=== PATIENT | male | born 1965 | race Caucasian/White ===

== ENCOUNTER 2019-04-27 21:07 | Inpatient (IN) | payer BC, MEDICARE ==
[~2019-04-27] VITALS: Ht 185.4 cm; Wt 140.6 kg
--- NOTE | 2019-04-27 21:24 | Emergency Room Report ---
History of Present Illness General Chief Complaint: Syncope Source: Patient Present Illness HPI This is a 53-year-old male with a history of chronic A. fib who is not on anticoagulation because of GI bleeding from polyps. He presents with chief complaint of syncope and injury from it. He said he went to the bathroom and had diarrhea. He said it was profuse and he noticed it was kind of dark and blackish in color. He got up and had a syncopal episode and hit his head. He said he passed out. He got better when he is on the ground. He got up again and fell again onto his knee and hurting his left second toe. He was able to get up and walk out to the hallway and had another syncopal episode. He called 911. He said he was diaphoretic. No chest pain. He complained of headache and left second toe pain. Also with chronic bilateral knee pain. Denies any palpitation prior to syncope. No shortness of breath. Patient complained of dental pain in the left lower jaw. He has a cracked tooth and has been painful for last 2 weeks. He was told that he needed a root canal. Allergies: Coded Allergies: No Known Allergies (Unverified , 04/27/19) Patient History Past Medical History: see triage record, old chart reviewed, HTN, AFib Past Surgical History: other Pertinent Family History: none Social History: Denies: smoking Immunizations: other Reviewed Nursing Documentation: PMH: Agreed; PSxH: Agreed Nursing Documentation-[facility] Past Medical History: No History, Except For Hx Hypertension: Yes Hx Cancer: No Hx Gastrointestinal Problems: Yes - esophageal varices Hx Seizures: Yes Review of Systems Eye: Denies: eye pain, blurred vision ENT: Denies: ear pain, nose congestion, throat swelling Respiratory: Denies: cough, shortness of breath Cardiovascular: Denies: chest pain, palpitations Gastrointestinal: Denies: abdominal pain, diarrhea, nausea, vomiting Musculoskeletal: Reports: joint pain; Denies: back pain Skin: Denies: rash Neurological: Reports: headache, syncope; Denies: numbness Endocrine: Denies: increased thirst, increased urine Hematologic/Lymphatic: Denies: easy bruising All Other Systems: negative except mentioned in HPI Physical Exam Vital Signs Date Time Temp Pulse Resp B/P (MAP) Pulse Ox O2 Delivery O2 Flow Rate FiO2 11/14/19 21:00 98.2 86 20 92/72 (79) 99 Room Air Vitals with hypotension Sp02 EP Interpretation: reviewed, normal General Appearance: well appearing, no apparent distress, alert, obese Head: normocephalic, atraumatic Eyes: bilateral eye PERRL, bilateral eye EOMI ENT: hearing grossly normal, normal pharynx Neck: full range of motion, supple, no meningismus Respiratory: chest non-tender, lungs clear, normal breath sounds Cardiovascular #1: no murmur, irregularly irregular Gastrointestinal: normal bowel sounds, non tender, no mass, no organomegaly, no bruit, non-distended Rectal: other - Yellow loose stool. Heme-negative Musculoskeletal: back normal, normal range of motion, other - Tenderness to the left second toe with probable dislocation of the middle phalanx Psychiatric: mood/affect normal Procedures Joint Reduction Joint Reduction : Consent: Verbal Joint Reduction Site: other - left 2nd toe Procedural Sedation: No Reduction Attempts: One Pre-Procedure NV Exam: Yes Post-Procedure NV Exam: Yes Post Joint Reduction Film: joint reduced Patient Tolerated: Well Complications: None Progress With gentle traction, I reduce the PIP joint of the second toe. Patient tolerated procedure without any problem. Additional Procedure Procedure Narrative Procedure: Dental block Indication: Dental pain Description: I injected the inferior alveolar nerve of the left lower jaw with 1 % lidocaine without epinephrine. I injected 2 cc. Patient felt better. No complication. Medical Decision Making Diagnostic Impression: Primary Impression: Syncope Qualified Codes: R55 - Syncope and collapse Additional Impressions: Head injury, acute Qualified Codes: S09.90XA - Unspecified injury of head, initial encounter Atrial fibrillation Qualified Codes: I48.11 - Longstanding persistent atrial fibrillation Dislocation of toe of left foot Qualified Codes: S93.105A - Unspecified dislocation of left toe(s), initial encounter Dental infection ER Course Patient presents with syncope. Most likely orthostatic secondary to diarrhea. No acute bleed. No ACS or PE. Patient felt better now. Pressure improved after IV fluids. Will admit for further work-up. I discussed the case with Dr. Price will admit. EKG Diagnostic Results Rate: normal Rhythm: other - afib ST Segments: other - NSST changes Rhythm Strip Diag. Results EP Interpretation: yes Rate: 81 Rhythm: no PVC's, no ectopy, other - afib Chest X-Ray Diagnostic Results Chest X-Ray Diagnostic Results : Chest X-Ray Ordered: Yes # of Views/Limited/Complete: 1 View Indication: Other - syncope EP Interpretation: Yes Interpretation: no consolidation, no effusion, no pneumothorax, other - CM with vasc congestion Impression: Other - CM Electronically Signed by: Gerardo Jerez MD Other X-Ray Diagnostic Results Other X-Ray Diagnostic Results : X-Ray ordered: Left foot xrays # of Views/Limited Vs Complete: 3 View Indication: Pain EP Interpretation: Yes Interpretation: no soft tissue swelling, no fractures, other - left 2nd toe with dislocation of PIP joint Impression: Other - left 2nd toe PIP joint. Electronically Signed by: Gerardo Jerez MD CT/MRI/US Diagnostic Results CT/MRI/US Diagnostic Results : Imaging Test Ordered: CT head Impression Read by radiologist. Negative. Last Vital Signs Date Time Temp Pulse Resp B/P (MAP) Pulse Ox O2 Delivery O2 Flow Rate FiO2 04/27/19 21:00 98.2 86 20 92/72 (79) 99 Room Air Status: improved Disposition: ADMITTED INPATIENT Condition: Serious Gerardo Jerez MD Apr 27, 2019 21:24
[2019-04-27 21:32] LABS: HEMATOCRIT 45.5 % (42.0-52.0); HEMOGLOBIN 14.8 G/DL (14.2-18.0); MEAN CORPUSCULAR VOLUME 80 FL (80-99); PLATELET COUNT 98 K/UL (150-450); RED CELL DISTRIBUTION WIDTH 14.8 % (11.6-14.8); WHITE BLOOD COUNT 4.8 K/UL (4.8-10.8)
[2019-04-27 21:35] VITALS: BP 110/72
[2019-04-27 21:44] LABS: INR 1.1 (0.9-1.1)
[2019-04-27] MEDS ORDERED: Bacitracin Oint UD TOPIC ONE (21:45)
--- NOTE | 2019-04-27 21:45 | NUR ---
ED Nurse Note: pt presents to ED via EMS arrival from home. per pt he had 3 syncopal episodes today that were unwtinessed. pt reports hitting his head for one of the episodes and LOC for one episode. pt also states that he had an episode of blood in his stool today. Pt c/o L second toe pain that is 10/10 and a toothache. pt denies feeling sweaty or lighteaded before he fell but does state that he was disoriented afterward. pt stopped taking blood thinners for his A.fib 2 months ago and has a h/o DM. lowest BP en route was 88/52, pt came with a 20 ti IV in his L foot and 1L NS running with 300 mL finished
[2019-04-27 21:54] LABS: ANION GAP 3 mmol/L (5-15); BLOOD UREA NITROGEN 14 mg/dL (7-18); CALCIUM 8.3 MG/DL (8.5-10.1); CARBON DIOXIDE 34 MMOL/L (21-32); CHLORIDE 103 MMOL/L (98-107); CREATININE 1.4 MG/DL (0.55-1.30); POTASSIUM 3.7 MMOL/L (3.5-5.1); SODIUM 140 MMOL/L (136-145)
[2019-04-27 22:00] VITALS: BP 126/74
[2019-04-27] MEDS ORDERED: Morphine Sulfate 4mg/ml Inj (IV USE ONLY) IVP ONE ×2 (22:00→23:15)
--- NOTE | 2019-04-27 22:04 | Diagnostic Imaging Report ---
Indication: Headache. Head trauma Technique: Contiguous 5 mm thick transaxial imaging of the head obtained in a Siemens Sensation [address] scanner. Soft tissue and bone windows generated. Automatic Exposure Control was utilized. Total Dose length Product (DLP): 1394.[address] Dose Index Volume (CTDIvol): 62.7 mGy Comparison: none Findings: The size and configuration of the cortical sulci, basal cisterns, and ventricles are within normal limits for age. There is no mass effect, midline shift, or edema identified. There is no evidence of acute hemorrhage or abnormal intra-axial or extra-axial fluid collections. The bones and soft tissues are unremarkable. Impression: No mass effect, edema or acute bleed. [facility] has communicated the preliminary results to the Emergency Department. Their findings are largely concordant with this report. The CT scanner at [facility] is accredited by the [employer] and the scans are performed using dose optimization techniques as appropriate to a performed exam including Automatic Exposure control.
[2019-04-27 22:06] LABS: ALANINE AMINOTRANSFERASE 58 U/L (12-78); ALBUMIN 3.3 G/DL (3.4-5.0); ALBUMIN/GLOBULIN RATIO 0.7 (1.0-2.7); ALKALINE PHOSPHATASE 133 U/L (46-116); ASPARTATE AMINO TRANSFERASE 75 U/L (15-37)
[2019-04-27 23:10] VITALS: BP 143/85
[2019-04-27] MEDS ORDERED: Morphine Sulfate 4mg/ml Inj (IV USE ONLY) IVP PRN (23:15)
--- NOTE | 2019-04-27 23:18 | NUR ---
TRANSFER TO FLOOR: Patient transferred to as ordered, per JYOTI Jerez. Report given to . Belongings sent with pt. Family and or S/O informed of transfer. Addendum: 04/28/19 at 0305 by LAKEE Report given to SHAWANDA Mcfadden
[2019-04-27 23:30] VITALS: BP 150/94
--- NOTE | 2019-04-27 23:30 | NUR ---
NURSE NOTES: Patient transferred safely to Tele, report given by Diana.Patient transferred via gurney, in stable condition, AOx4, complains of tooth pain 5/10 and bilateral knees 4/10, feels weak, IV site on right AC g 22, asymptomatic, patent, intact. Small laceration on nose, minimal bleeding noted, left 2nd toe dislocation, Belongings checked and signed, called Dr. Price for admission orders. Bed low&locked, side rails upx3, call light within reach, will continue to monitor and reassess.
[2019-04-28] VITALS: BP 140/89
--- NOTE | 2019-04-28 | NUR ---
NURSE NOTES: Admission orders received, noted and carried out
[2019-04-28] MEDS ORDERED: traMADol 50mg tab ORAL PRN ×2 (03:45→11:18)
[2019-04-28 04:00] VITALS: BP 115/61
[2019-04-28 06:42] LABS: HEMATOCRIT 41.5 % (42.0-52.0); HEMOGLOBIN 13.1 G/DL (14.2-18.0); MEAN CORPUSCULAR VOLUME 82 FL (80-99); PLATELET COUNT 91 K/UL (150-450); RED BLOOD COUNT 5.06 M/UL (4.70-6.10); RED CELL DISTRIBUTION WIDTH 16.8 % (11.6-14.8); WHITE BLOOD COUNT 4.8 K/UL (4.8-10.8)
[2019-04-28 07:28] LABS: ALANINE AMINOTRANSFERASE 48 U/L (12-78); ALBUMIN 2.9 G/DL (3.4-5.0); ALBUMIN/GLOBULIN RATIO 0.6 (1.0-2.7); ALKALINE PHOSPHATASE 120 U/L (46-116); ANION GAP 5 mmol/L (5-15); ASPARTATE AMINO TRANSFERASE 62 U/L (15-37); BLOOD UREA NITROGEN 18 mg/dL (7-18); CARBON DIOXIDE 29 MMOL/L (21-32); CHLORIDE 102 MMOL/L (98-107); CREATININE 1.4 MG/DL (0.55-1.30); PHOSPHORUS 3.3 MG/DL (2.5-4.9); POTASSIUM 3.5 MMOL/L (3.5-5.1); SODIUM 135 MMOL/L (136-145)
--- NOTE | 2019-04-28 07:28 | NUR ---
HAND-OFF: Report given to SHAWANDA Blum, patient in stable condition, plan of care endorsed..
[2019-04-28 07:45] LABS: BILIRUBIN,TOTAL 0.6 MG/DL (0.2-1.0)
[2019-04-28 07:49] VITALS: BP 113/70
[2019-04-28] MEDS: Spironolactone 25mg tab ORAL SCH ×2 (08:15→17:02)
[2019-04-28] MEDS: Sertraline 100mg tab ORAL SCH (08:47)
--- NOTE | 2019-04-28 08:49 | NUR ---
NURSE NOTES: pt awake alert, no distress. denies sob. call light within reach. denies pain. will monitor. tramadol effective in relieving generalized pain (pt c/o toothache and generalized body pain).
--- NOTE | 2019-04-28 10:59 | Diagnostic Imaging Report ---
Indication: Foot pain Comparison: None Findings: 3 views of the left foot were obtained. There is apparent dislocation of the second PIP joint. No fracture is identified. Soft tissues are unremarkable. IMPRESSION: Dislocated PIP joint second toe
--- NOTE | 2019-04-28 11:00 | Diagnostic Imaging Report ---
Indication: Dyspnea Comparison: None A single view chest radiograph was obtained. Findings: Both interstitial and alveolar densities demonstrated throughout the lungs. The alveolar or airspace opacities are prominent within the upper lung salcedo while the interstitial densities are noted diffusely. This is seen in the setting of prominent pulmonary vascularity and heart size. The bones are unremarkable. IMPRESSION: Suspect CHF. Correlate clinically
--- NOTE | 2019-04-28 11:21 | Consultation ---
History of Present Illness General Date patient seen: Apr 28, 2019 Chief Complaint: Syncope Present Illness HPI 53-year-old male with a history of chronic A fib, SHARDA, PUCKETT, not on anticoagulation presented to ER with chief complaint of syncope in the bathroom. He said his BM was profuse and he noticed it was kind of dark and blackish in color. He got up and had a syncopal episode and hit his head. He was able to get up and walk out to the hallway and had another syncopal episode. He called 911. He complained of headache and left second toe pain. His Systolic BP was around 70's in the field. He takes Amlodipine for BP. He is admitted to telemetry for further evaluation. Allergies: Coded Allergies: No Known Allergies (Unverified , 04/27/19) Patient History Healthcare decision maker Resuscitation status Full Code Advanced Directive on File Past Medical/Surgical History Past Medical/Surgical History: (1) History of hypertension (2) PUCKETT (nonalcoholic steatohepatitis) (3) Morbid obesity with BMI of 40.0-44.9, adult (4) SHARDA (obstructive sleep apnea) (5) Atrial fibrillation Review of Systems All Other Systems: negative except mentioned in HPI Physical Exam General Appearance: WD/WN, no apparent distress Lines, tubes and drains: peripheral HEENT: normocephalic, atraumatic Neck: non-tender, normal alignment Respiratory/Chest: chest wall non-tender, lungs clear, normal breath sounds Cardiovascular/Chest: normal peripheral pulses, normal rate, regular rhythm Abdomen: normal bowel sounds Genitourinary/Rectal: normal genital exam Skin Exam: normal pigmentation Neurologic: nursing unit coordinator II-XII grossly normal Last 24 Hour Vital Signs Date Time Temp Pulse Resp B/P (MAP) Pulse Ox O2 Delivery O2 Flow Rate FiO2 04/28/19 09:00 Room Air 04/28/19 08:46 97.1 04/28/19 08:18 90 113/70 04/28/19 08:06 106 04/28/19 08:00 30 04/28/19 07:49 97.1 90 16 113/70 (84) 99 04/28/19 04:08 30 04/28/19 04:00 93 04/28/19 04:00 96.8 99 16 115/61 (79) 99 04/28/19 03:00 89 16 94 Facial 30 04/28/19 01:31 30 04/28/19 01:30 90 17 93 Facial 30 04/28/19 00:00 97.5 102 18 140/89 (106) 96 04/28/19 00:00 98 04/28/19 00:00 100 96 106 04/27/19 23:38 103 04/27/19 23:38 Bi-pap 04/27/19 23:34 97 19 143/85 97 Room Air 04/27/19 23:30 97.5 106 21 150/94 (112) 96 04/27/19 23:22 98.2 04/27/19 23:10 97 20 143/85 96 Room Air 04/27/19 22:40 98.2 04/27/19 22:00 89 20 126/74 97 Room Air 04/27/19 21:35 98.2 20 110/72 99 Room Air 04/27/19 21:00 98.2 86 20 92/72 (79) 99 Room Air Intake and Output 04/27/19 04/28/19 19:00 07:00 Intake Total 50 ml Balance 50 ml Intake Oral 50 ml Laboratory Tests Test 04/27/19 21:20 04/28/19 05:53 White Blood Count 4.8 K/UL (4.8-10.8) 4.8 K/UL (4.8-10.8) Red Blood Count 5.70 M/UL (4.70-6.10) 5.06 M/UL (4.70-6.10) Hemoglobin 14.8 G/DL (14.2-18.0) 13.1 G/DL (14.2-18.0) L Hematocrit 45.5 % (42.0-52.0) 41.5 % (42.0-52.0) L Mean Corpuscular Volume 80 FL (80-99) 82 FL (80-99) Mean Corpuscular Hemoglobin 25.9 PG (27.0-31.0) L 25.9 PG (27.0-31.0) L Mean Corpuscular Hemoglobin Concent 32.4 G/DL (32.0-36.0) 31.6 G/DL (32.0-36.0) L Red Cell Distribution Width 14.8 % (11.6-14.8) 16.8 % (11.6-14.8) H Platelet Count 98 K/UL (150-450) L 91 K/UL (150-450) L Mean Platelet Volume 6.0 FL (6.5-10.1) L 6.4 FL (6.5-10.1) L Neutrophils (%) (Auto) % (45.0-75.0) % (45.0-75.0) Lymphocytes (%) (Auto) % (20.0-45.0) % (20.0-45.0) Monocytes (%) (Auto) % (1.0-10.0) % (1.0-10.0) Eosinophils (%) (Auto) % (0.0-3.0) % (0.0-3.0) Basophils (%) (Auto) % (0.0-2.0) % (0.0-2.0) Differential Total Cells Counted 100 100 Neutrophils % (Manual) 75 % (45-75) 77 % (45-75) H Lymphocytes % (Manual) 16 % (20-45) L 17 % (20-45) L Monocytes % (Manual) 7 % (1-10) 5 % (1-10) Eosinophils % (Manual) 2 % (0-3) 1 % (0-3) Basophils % (Manual) 0 % (0-2) 0 % (0-2) Band Neutrophils 0 % (0-8) 0 % (0-8) Platelet Estimate Decreased L Decreased L Platelet Morphology Normal Normal Red Blood Cell Morphology Normal Prothrombin Time 11.2 SEC (9.30-11.50) Prothromb Time International Ratio 1.1 (0.9-1.1) Activated Partial Thromboplast Time 25 SEC (23-33) Sodium Level 140 MMOL/L (136-145) 135 MMOL/L (136-145) L Potassium Level 3.7 MMOL/L (3.5-5.1) 3.5 MMOL/L (3.5-5.1) Chloride Level 103 MMOL/L (98-107) 102 MMOL/L (98-107) Carbon Dioxide Level 34 MMOL/L (21-32) H 29 MMOL/L (21-32) Anion Gap 3 mmol/L (5-15) L 5 mmol/L (5-15) Blood Urea Nitrogen 14 mg/dL (7-18) 18 mg/dL (7-18) Creatinine 1.4 MG/DL (0.55-1.30) H 1.4 MG/DL (0.55-1.30) H Estimat Glomerular Filtration Rate 53.2 mL/min (>60) 53.2 mL/min (>60) Glucose Level 99 MG/DL (74-106) 167 MG/DL (74-106) H Calcium Level 8.3 MG/DL (8.5-10.1) L 8.0 MG/DL (8.5-10.1) L Total Bilirubin 1.0 MG/DL (0.2-1.0) 0.6 MG/DL (0.2-1.0) Aspartate Amino Transf (AST/SGOT) 75 U/L (15-37) H 62 U/L (15-37) H Alanine Aminotransferase (ALT/SGPT) 58 U/L (12-78) 48 U/L (12-78) Alkaline Phosphatase 133 U/L (46-116) H 120 U/L (46-116) H Troponin I 0.000 ng/mL (0.000-0.056) 0.002 ng/mL (0.000-0.056) Pro-B-Type Natriuretic Peptide 92 pg/mL (0-125) Total Protein 7.9 G/DL (6.4-8.2) 7.6 G/DL (6.4-8.2) Albumin 3.3 G/DL (3.4-5.0) L 2.9 G/DL (3.4-5.0) L Globulin 4.6 g/dL 4.7 g/dL Albumin/Globulin Ratio 0.7 (1.0-2.7) L 0.6 (1.0-2.7) L Anisocytosis 1+ Phosphorus Level 3.3 MG/DL (2.5-4.9) Magnesium Level 1.8 MG/DL (1.8-2.4) Height (Feet): 6 Height (Inches): 1.00 Weight (Pounds): 310 Medications Current Medications Medications (Trade) Dose Ordered Sig/Yan Route PRN Reason Start Time Stop Time Status Last Admin Dose Admin Amlodipine Besylate (Norvasc) 10 mg DAILY ORAL 04/28/19 09:00 05/28/19 08:59 Amoxicillin (Amoxil) 500 mg EVERY 8 HOURS ORAL 04/28/19 06:00 05/05/19 05:59 04/28/19 05:42 Gabapentin (Neurontin) 300 mg THREE TIMES A DAY ORAL 04/28/19 09:00 05/28/19 08:59 04/28/19 08:15 Lamotrigine (LaMICtal) 100 mg BID ORAL 04/28/19 09:00 05/28/19 08:59 04/28/19 08:15 Pantoprazole (Protonix) 40 mg DAILY ORAL 04/28/19 09:00 05/28/19 08:59 04/28/19 08:15 Sertraline HCl (Zoloft) 100 mg DAILY ORAL 04/28/19 09:00 05/28/19 08:59 04/28/19 08:47 Spironolactone (Aldactone) 25 mg BID ORAL 04/28/19 09:00 05/28/19 08:59 04/28/19 08:15 Tramadol HCl (Ultram) 50 mg Q6H PRN ORAL pain 04/28/19 03:45 05/05/19 03:44 04/28/19 08:16 Trazodone HCl (Desyrel) 50 mg BEDTIME ORAL 04/28/19 21:00 05/28/19 20:59 Assessment/Plan Problem List: (1) Hypotensive syncope ICD Codes: R55 - Syncope and collapse SNOMED: 56669812 (2) Acute encephalopathy ICD Codes: G93.40 - Encephalopathy, unspecified SNOMED: 68752897, 178512219 (3) Atrial fibrillation ICD Codes: I48.91 - Unspecified atrial fibrillation SNOMED: 35271045, 7138123 Qualifiers: Qualified Codes: I48.11 - Longstanding persistent atrial fibrillation (4) SHARDA (obstructive sleep apnea) ICD Codes: G47.33 - Obstructive sleep apnea (adult) (pediatric) SNOMED: 67383016 (5) Morbid obesity with BMI of 40.0-44.9, adult ICD Codes: E66.01 - Morbid (severe) obesity due to excess calories; Z68.41 - Body mass index (BMI) 40.0-44.9, adult SNOMED: 267885388, 744736520, 73506361377685 (6) PUCKETT (nonalcoholic steatohepatitis) ICD Codes: K75.81 - Nonalcoholic steatohepatitis (PUCKETT) SNOMED: 981248569 (7) History of hypertension ICD Codes: Z86.79 - Personal history of other diseases of the circulatory system SNOMED: 947063082 Assessment/Plan: echo reviewed cardio evaluation adjust cardiac meds check stool symptomatic treatment MRI of knee when pt more stable. Quentin Beckford MD Apr 28, 2019 11:21
[2019-04-28 12:00] VITALS: BP 120/70
[2019-04-28] MEDS: HYDROcodone/Acetamin 5/325 tab ORAL PRN ×2 (14:04→20:51)
[2019-04-28 15:17] VITALS: BP 118/70
--- NOTE | 2019-04-28 15:41 | Cardiology Report ---
APPROVED REPORT EXAM: Two-dimensional and M-mode echocardiogram with Doppler and color Doppler. INDICATION Syncope M-Mode DIMENSIONS IVSd1.2 (0.7-1.1cm)Left Atrium (MM)4.4 (1.6-4.0cm) LVDd4.5 (3.5-5.6cm)Aortic Root3.6 (2.0-3.7cm) PWd1.2 (0.7-1.1cm)Aortic Cusp Exc.2.6 (1.5-2.0cm) LVDs1.9 (2.5-4.0cm) PWs2.1 cm Technically difficult study due to patient body habitus. Study quality precludes accurate assessment of regional wall motion. Normal left ventricular chamber size, systolic function and wall motion to extent visualized. Left ventricular ejection fraction estimated to be 60 %. Mild left ventricular hypertrophy. No evidence of pericardial effusion. Mild left atrial enlargement. Right cardiac chamber sizes are within normal limits. Focal aortic valve sclerosis with adequate cusp excursion. Thickened mitral valve leaflets with normal excursion. Mild mitral annulus and aortic root calcification. Pulmonic valve not well visualized. Normal tricuspid valve structure. IVC is normal in size with physiological collapse. A color flow and spectral Doppler study was performed and revealed: No aortic regurgitation. No mitral regurgitation. Left ventricular diastolic function could not be determined due to A-Fib. No tricuspid regurgitation. No pulmonic regurgitation present.
--- NOTE | 2019-04-28 15:45 | History & Physical ---
History and Physical History & Physicial Joselo Price MD Apr 28, 2019 15:45
--- NOTE | 2019-04-28 16:57 | NUR ---
CASE MANAGEMENT: 53YR OLD MALE BIBA FROM HOME CC; BP 88/51 @ [facility] SI: SYNCOPE. AFIB. DENTAL INFECTION 98.2 86 20 92/72 99% ON RA CR+1.4 IS: 1L NS BOLUS 500CC NS BOLUS IV MORPHINE IV ZOFRAN CT HEAD CXR : TO TELEMETRY INTERQUAL CRITERIA MET
--- NOTE | 2019-04-28 17:56 | Diagnostic Imaging Report ---
EXAM: XR Left Knee, 3 Views CLINICAL HISTORY: PAIN TECHNIQUE: Three views of the left knee. COMPARISON: None FINDINGS: Bones joints: No displaced fracture or dislocation identified. Osteopenia. Mild degenerative changes of the left knee. No joint effusion. Soft tissues: Normal. IMPRESSION: No displaced fracture or dislocation identified.
--- NOTE | 2019-04-28 17:58 | Diagnostic Imaging Report ---
EXAM: XR Right Knee, 3 Views CLINICAL HISTORY: PAIN TECHNIQUE: Three views of the right knee. COMPARISON: None FINDINGS: Bones joints: No displaced fracture or dislocation identified. Osteopenia. Mild degenerative changes of the right knee. Quadriceps tendon enthesophyte off the superior patella. No joint effusion. Soft tissues: Mild soft tissue prominence. IMPRESSION: No displaced fracture or dislocation identified.
--- NOTE | 2019-04-28 19:08 | NUR ---
HAND-OFF: Report given to ELBA MYABERRY.
--- NOTE | 2019-04-28 19:43 | NUR ---
NURSE NOTES: Received report from SHAWANDA Blum, patient in stable condition, AOx4, complains of pain 4/10 bilateral knees, , IV right AC g22 asymptomatic, patent, intact, bed low and locked, call light within reach, side rails upx3 will continue to monitor and reassess.
[2019-04-28 20:00] VITALS: BP 116/53
--- NOTE | 2019-04-28 20:00 | History and Physical Report ---
DATE OF ADMISSION: 04/27/2019 CHIEF COMPLAINT: Syncopal episode. HISTORY OF PRESENT ILLNESS: This is a 53-year-old gentleman with past medical history significant for chronic atrial fibrillation, history of PUCKETT, hypertension, history of colonic polyp with prior history of GI bleed with severe anemia, required 2 units of packed RBC. The patient presented to the emergency room after had a syncopal episode. The patient stated that he went to the bathroom, had a bowel movement profuse, and noticed a dark blackish color. He got up, had a syncopal episode, and hit his back of his head. He passed out 3 times. He got better. When he was on the ground, he got up again, he fell again after his knees were buckled and then sustained injury to the left second toe. The patient was able to get up and walk around the hallway and had another syncope. Subsequently, he called EMS and then the patient was brought into the emergency room. The patient thought that he passed out for a short period of time. Denies any chest pain or palpitation prior to that. Denies any double vision or bowel or urine incontinence. Shortly after initial evaluation in the emergency, the patient was admitted to the hospital with hypotension as well as syncope with collapse. PAST MEDICAL HISTORY/PAST SURGICAL HISTORY: As above history of atrial fibrillation, obstructive sleep apnea on Auto PAP, history of PUCKETT, and morbid obesity. History of GI bleed due to the duodenum polyps. Has 3 polyps that bled and required blood transfusion in the past [address] [facility]. MEDICATIONS AT HOME: Please refer to medication reconciliation. ALLERGIES: No known drug allergies. SOCIAL HISTORY: The patient at this time is disabled. Denies any substance abuse. Denies any alcohol abuse. He used to work in . FAMILY HISTORY: Noncontributory. REVIEW OF SYSTEMS: Mostly as above. Denies any dysuria, frequency, or hematuria. Denies any bright red blood per rectum. Denies any double vision. Complained about loss of consciousness. Positive head trauma. Denies any bowel or urine incontinence. PHYSICAL EXAMINATION: VITAL SIGNS: On admission from the ER, temperature 98.2, pulse of 86, respiratory rate 20, blood pressure 92/72, repeat one is 126/74. GENERAL: The patient is awake, responsive, no acute distress. HEAD AND NECK: Pupils are reactive to light. Extraocular movements intact. Neck was supple. No JVD. LUNGS: Clear. No wheezes or rales. Decreased air entry in the bases. HEART: S1, S2. Distant heart sounds. Irregular. No murmur or gallop was appreciated. ABDOMEN: Soft, nondistended, nontender. Morbidly obese. No rebound tenderness. No fluid shift. EXTREMITIES: No cyanosis, clubbing. Trace ankle edema NEUROLOGIC: Cranial nerves II through XII grossly intact. Motor is 5/5. Gait was not assessed due to the patient's status. RECTAL: Refused and deferred. GENITOURINARY: Refused and deferred. PSYCHIATRIC: Mood and affect is intact. LABORATORY DATA: On admission from the ER, WBC of 4.8, hemoglobin 14, hematocrit 45, platelet is 98. Sodium 140, potassium 3.7, chloride 103, bicarb 34, BUN 14, creatinine 1.4, glucose 99, calcium is 8.3. AST of 75, ALT of 58, alkaline phosphatase 133. First and second troponin negative at 0.00 and 0.002. BNP of 92. Albumin is 3.3. Total protein 7.9. PT is 11, INR 1.1, PTT of 25. The patient had a CT of the brain showed no mass effect, edema, or acute bleed. X-ray of the foot shows a dislocated PIP joint second toe on the left foot. Chest x-ray is suspected congestive heart failure. Correlate clinically. ASSESSMENT: 1. Syncope and collapse, most likely secondary to hypotension, possible dehydration. 2. Chronic atrial fibrillation. 3. Obstructive sleep apnea, on CPAP. 4. Morbid obesity. 5. History of PUCKETT. 6. History of hypertension. 7. Thrombocytopenia. 8. Chronic kidney disease, stage II. 9. Left foot second toe dislocation, status post of rearrangement and replacement fixed displacement. 10. Dental infection with dental cavities. PLAN: 1. Admit the patient to monitored unit. We will follow up with Dr. Beckford from Pulmonary Critical Care and Dr. Aldana from Cardiology. 2. Resume home medication. 3. Monitor blood pressure closely. 4. Monitor laboratory in the morning. 5. Code status, Full Code. 6. DVT prophylaxis, heparin subcutaneous. 7. We will follow up with 2D echo. Joselo Price M.D. DR: NARGIS JOB#: [id number] CC:
[2019-04-28] MEDS: TraZODone 50mg tab ORAL SCH (20:52)
--- NOTE | 2019-04-28 23:00 | NUR ---
RESPIRATORY NOTE: Noted a pre-existing scab to the pt's nose bridge before initiating therapy. Rn, Lesa mejia. Pt in no discomfort- per pt.
[2019-04-29] VITALS (7 sets, daily range): BP systolic 97–136; BP diastolic 60–96
--- NOTE | 2019-04-29 07:30 | NUR ---
HAND-OFF: Report given to SHAWANDA Wiggins, patient in stable condition, plan of care endorsed.
--- NOTE | 2019-04-29 07:57 | NUR ---
NURSE NOTES: Received report from SHAWANDA Mcfadden. pt in bed, awake, talkative, complaining of knee pain, pt is alert and oriented x4, discussed plan of care with pt, will asked for PT consult for pt after fall, bed in lowest position, call light within reach.
--- NOTE | 2019-04-29 07:59 | NUR ---
NURSE NOTES: Asked Dr. Price for PT eval for pt
[2019-04-29] MEDS: Spironolactone 25mg tab ORAL SCH ×2 (08:12→17:28)
[2019-04-29] MEDS: Sertraline 100mg tab ORAL SCH (08:12)
[2019-04-29] MEDS: HYDROcodone/Acetamin 5/325 tab ORAL PRN ×3 (08:12→21:29)
--- NOTE | 2019-04-29 09:14 | Pulmonology Progress Note ---
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 CPAP at night filler H&H check stool OB s/p IVF BP stable, BP management with CCB CT head negative s/p reduction PIP joint in ED X-ray bilateral knee -no fracture or dislocation; + chronic changes pain management s/p dental block in ED ; continue amoxicillin GI prophylaxis trend LFT monitor renal parameters, lytes trend PLT case discussed and evaluated by supervising physician Subjective Allergies: Coded Allergies: No Known Allergies (Unverified , 04/27/19) Subjective denies dizziness, CP, SOB c/o pain bilateral knee, follows up with ortho as o/pt Objective Last 24 Hour Vital Signs Date Time Temp Pulse Resp B/P (MAP) Pulse Ox O2 Delivery O2 Flow Rate FiO2 04/29/19 08:16 Room Air 04/29/19 08:13 70 135/60 04/29/19 08:00 30 04/29/19 08:00 97.9 70 18 135/60 (85) 94 04/29/19 07:35 90 04/29/19 04:49 77 18 97 04/29/19 04:00 98.1 95 20 120/60 (80) 99 04/29/19 04:00 30 04/29/19 04:00 92 04/29/19 00:00 92 04/29/19 00:00 98.0 80 20 136/96 (109) 99 04/28/19 22:52 78 18 98 Full Face 30 04/28/19 21:00 85 87 90 04/28/19 21:00 Room Air 04/28/19 20:00 30 04/28/19 20:00 83 04/28/19 20:00 98.5 77 18 116/53 (74) 99 04/28/19 16:00 30 04/28/19 15:49 86 04/28/19 15:17 98.0 92 16 118/70 (86) 99 04/28/19 14:34 97.1 04/28/19 12:00 97.1 90 16 120/70 (87) 99 04/28/19 12:00 30 04/28/19 11:54 97.1 04/28/19 11:27 94 Intake and Output 04/28/19 04/29/19 18:59 06:59 Intake Total 900 ml 500 ml Output Total 550 ml 1200 ml Balance 350 ml -700 ml Intake Oral 900 ml 500 ml Output Urine Total 550 ml 1200 ml # Voids 1 4 General Appearance: other - A/A/O obese male in NAD HEENT: normocephalic, atraumatic, anicteric, mucous membranes moist Respiratory/Chest: lungs clear, no respiratory distress, chest wall tender Cardiovascular: normal rate Abdomen: normal bowel sounds, soft, non tender - obese Extremities: no edema, pedal pulses normal Neurologic/Psychiatric: no motor/sensory deficits, alert, oriented x 3, responsive Lymphatic: no neck adenopathy Musculoskeletal: normal muscle bulk Current Medications Medications (Trade) Dose Ordered Sig/Yan Route PRN Reason Start Time Stop Time Status Last Admin Dose Admin Acetaminophen (Tylenol) 650 mg Q4H PRN ORAL Mild Pain/Temp > 100.5 04/28/19 11:15 05/28/19 11:14 04/28/19 11:24 Acetaminophen/ Hydrocodone Bitart ([place] 5/325) 1 tab Q4H PRN ORAL Severe Pain (Pain Scale 7-10) 04/28/19 11:15 05/05/19 11:14 04/29/19 08:12 Amlodipine Besylate (Norvasc) 10 mg DAILY ORAL 04/28/19 09:00 05/28/19 08:59 04/29/19 08:13 Amoxicillin (Amoxil) 500 mg EVERY 8 HOURS ORAL 04/28/19 06:00 05/05/19 05:59 04/29/19 05:56 Gabapentin (Neurontin) 300 mg THREE TIMES A DAY ORAL 04/28/19 09:00 05/28/19 08:59 04/29/19 08:12 Lamotrigine (LaMICtal) 100 mg BID ORAL 04/28/19 09:00 05/28/19 08:59 04/29/19 08:13 Pantoprazole (Protonix) 40 mg DAILY ORAL 04/28/19 09:00 05/28/19 08:59 04/29/19 08:13 Sertraline HCl (Zoloft) 100 mg DAILY ORAL 04/28/19 09:00 05/28/19 08:59 04/29/19 08:12 Spironolactone (Aldactone) 25 mg BID ORAL 04/28/19 09:00 05/28/19 08:59 04/29/19 08:12 Tramadol HCl (Ultram) 50 mg Q6H PRN ORAL Moderate Pain (Pain Scale 4-6) 04/28/19 11:18 05/05/19 11:17 Trazodone HCl (Desyrel) 50 mg BEDTIME ORAL 04/28/19 21:00 05/28/19 20:59 04/28/19 20:52 Nuria Perry THERMOFORMING MACHINE OPERATOR Apr 29, 2019 09:14
--- NOTE | 2019-04-29 13:51 | Internal Med Progress Note ---
Subjective Date of Service: Apr 29, 2019 Physician Name Fabian Wellington Attending Physician Joselo Price MD Current Medications Medications (Trade) Dose Ordered Sig/Yan Route PRN Reason Start Time Stop Time Status Last Admin Dose Admin Acetaminophen (Tylenol) 650 mg Q4H PRN ORAL Mild Pain/Temp > 100.5 04/28/19 11:15 05/28/19 11:14 04/28/19 11:24 Acetaminophen/ Hydrocodone Bitart ([place] 5/325) 1 tab Q4H PRN ORAL Severe Pain (Pain Scale 7-10) 04/28/19 11:15 05/05/19 11:14 04/29/19 13:28 Amlodipine Besylate (Norvasc) 10 mg DAILY ORAL 04/28/19 09:00 05/28/19 08:59 04/29/19 08:13 Amoxicillin (Amoxil) 500 mg EVERY 8 HOURS ORAL 04/28/19 06:00 05/05/19 05:59 04/29/19 13:27 Gabapentin (Neurontin) 300 mg THREE TIMES A DAY ORAL 04/28/19 09:00 05/28/19 08:59 04/29/19 13:27 Lamotrigine (LaMICtal) 100 mg BID ORAL 04/28/19 09:00 05/28/19 08:59 04/29/19 08:13 Pantoprazole (Protonix) 40 mg DAILY ORAL 04/28/19 09:00 05/28/19 08:59 04/29/19 08:13 Sertraline HCl (Zoloft) 100 mg DAILY ORAL 04/28/19 09:00 05/28/19 08:59 04/29/19 08:12 Spironolactone (Aldactone) 25 mg BID ORAL 04/28/19 09:00 05/28/19 08:59 04/29/19 08:12 Tramadol HCl (Ultram) 50 mg Q6H PRN ORAL Moderate Pain (Pain Scale 4-6) 04/28/19 11:18 05/05/19 11:17 Trazodone HCl (Desyrel) 50 mg BEDTIME ORAL 04/28/19 21:00 05/28/19 20:59 04/28/19 20:52 Allergies: Coded Allergies: No Known Allergies (Unverified , 04/27/19) ROS Limited/Unobtainable: No Constitutional: Reports: no symptoms HEENT: Reports: no symptoms Cardiovascular: Reports: no symptoms Respiratory: Reports: no symptoms Gastrointestinal/Abdominal: Reports: no symptoms Genitourinary: Reports: no symptoms Neurologic/Psychiatric: Reports: no symptoms Subjective 53 YO M admitted with syncope. Cover for Int Med-Dr Price Objective Last Vital Signs Date Time Temp Pulse Resp B/P (MAP) Pulse Ox O2 Delivery O2 Flow Rate FiO2 04/29/19 12:00 30 04/29/19 12:00 98.0 79 18 127/63 (84) 96 04/29/19 08:16 Room Air Intake and Output 04/28/19 04/29/19 19:00 07:00 Intake Total 900 ml 500 ml Output Total 550 ml 1200 ml Balance 350 ml -700 ml Intake Oral 900 ml 500 ml Output Urine Total 550 ml 1200 ml # Voids 1 4 Objective PHYSICAL EXAMINATION: GENERAL: The patient is awake, responsive, no acute distress. HEAD AND NECK: Pupils are reactive to light. Extraocular movements intact. Neck was supple. No JVD. LUNGS: Clear. No wheezes or rales. Decreased air entry in the bases. HEART: S1, S2. Distant heart sounds. Irregular. No murmur or gallop was appreciated. ABDOMEN: Soft, nondistended, nontender. Morbidly obese. No rebound tenderness. No fluid shift. EXTREMITIES: No cyanosis, clubbing. Trace ankle edema NEUROLOGIC: Cranial nerves II through XII grossly intact. Motor is 5/5. Gait was not assessed due to the patient's status. RECTAL: Refused and deferred. GENITOURINARY: Refused and deferred. PSYCHIATRIC: Mood and affect is intact. Assessment/Plan Assessment/Plan ASSESSMENT: 1. Syncope and collapse, most likely secondary to hypotension, possible dehydration. 2. Chronic atrial fibrillation. 3. Obstructive sleep apnea, on CPAP. 4. Morbid obesity. 5. History of PUCKETT. 6. History of hypertension. 7. Thrombocytopenia. 8. Chronic kidney disease, stage II. 9. Left foot second toe dislocation, status post of rearrangement and replacement fixed displacement. 10. Dental infection with dental cavities. PLAN: 1. Admit the patient to monitored unit. We will follow up with Dr. Beckford from Pulmonary Critical Care and Dr. Aldana from Cardiology. 2. Resume home medication. 3. Monitor blood pressure closely. 4. Monitor laboratory in the morning. 5. Code status, Full Code. 6. DVT prophylaxis, heparin subcutaneous. 7. We will follow up with 2D echo. Fabian Wellington MD Apr 29, 2019 13:51
--- NOTE | 2019-04-29 14:53 | Cardiology Report ---
APPROVED REPORT EKG Measurement Heart [id number] Atrial fibrillation Abnormal ECG
--- NOTE | 2019-04-29 15:45 | NUR ---
NURSE NOTES: Notified Dr. Aldana BP at 1545 97/62 HR 72, also sent MD results of Orthostatic Vitals from this shift
[2019-04-29] MEDS ORDERED: NS 250 ML IVPB ONE (16:45)
--- NOTE | 2019-04-29 19:20 | NUR ---
HAND-OFF: Report given to SHAWANDA Mcfadden. Pt stable..
--- NOTE | 2019-04-29 19:36 | NUR ---
NURSE NOTES: Received report from SHAWANDA Wiggins, patient in stable condition, AOx4, complains of pain 6/10 bilateral knees, , IV right AC g22 asymptomatic, patent, intact, bed low and locked, call light within reach, side rails upx3 will continue to monitor and reassess.
[2019-04-29] MEDS: TraZODone 50mg tab ORAL SCH (21:29)
[2019-04-30] VITALS: BP 113/63
[2019-04-30 04:00] VITALS: BP 114/71
--- NOTE | 2019-04-30 07:07 | NUR ---
HAND-OFF: Report given to SHAWANDA Wiggins, patient in stable condition, plan of care endorsed.
--- NOTE | 2019-04-30 07:09 | NUR ---
NURSE NOTES: Received report from SHAWANDA Mcfadden. Pt in bed, awake, talkative, pt is A/Ox4 no apparent distress noted, laboratory director drawing blood, bed in lowest position, call light within reach, discussed plan of care with pt.
[2019-04-30 07:38] LABS: HEMATOCRIT 38.1 % (42.0-52.0); HEMOGLOBIN 12.3 G/DL (14.2-18.0); MEAN CORPUSCULAR VOLUME 82 FL (80-99); PLATELET COUNT 73 K/UL (150-450); RED BLOOD COUNT 4.65 M/UL (4.70-6.10); RED CELL DISTRIBUTION WIDTH 16.2 % (11.6-14.8); WHITE BLOOD COUNT 3.4 K/UL (4.8-10.8)
[2019-04-30 08:00] VITALS: BP 132/83
[2019-04-30 08:00] LABS: ALANINE AMINOTRANSFERASE 35 U/L (12-78); ALBUMIN 2.7 G/DL (3.4-5.0); ALBUMIN/GLOBULIN RATIO 0.6 (1.0-2.7); ALKALINE PHOSPHATASE 101 U/L (46-116); ANION GAP 7 mmol/L (5-15); ASPARTATE AMINO TRANSFERASE 41 U/L (15-37); BILIRUBIN,TOTAL 0.5 MG/DL (0.2-1.0); BLOOD UREA NITROGEN 11 mg/dL (7-18); CARBON DIOXIDE 28 MMOL/L (21-32); CHLORIDE 106 MMOL/L (98-107); CREATININE 1.1 MG/DL (0.55-1.30); POTASSIUM 3.8 MMOL/L (3.5-5.1); SODIUM 141 MMOL/L (136-145)
[2019-04-30] MEDS: Spironolactone 25mg tab ORAL SCH ×2 (08:12→17:33)
[2019-04-30] MEDS: Sertraline 100mg tab ORAL SCH (08:12)
[2019-04-30] MEDS: HYDROcodone/Acetamin 5/325 tab ORAL PRN ×2 (08:16→22:13)
--- NOTE | 2019-04-30 09:52 | Pulmonology Progress Note ---
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 H&H check stool OB s/p IVF BP stable, BP management with CCB CT head negative s/p reduction PIP joint in ED X-ray bilateral knee -no fracture or dislocation; + chronic changes pain management s/p dental block in ED ; continue amoxicillin GI prophylaxis trend LFT -trending down monitor renal parameters, lytes trend PLT trending down probably due to liver disease /PUCKETT PT eval and Rx this am can go to [facility] case discussed and evaluated by supervising physician Subjective Allergies: Coded Allergies: No Known Allergies (Unverified , 04/27/19) Subjective denies dizziness, CP, SOB c/o pain bilateral knee, follows up with ortho as o/pt Objective Last 24 Hour Vital Signs Date Time Temp Pulse Resp B/P (MAP) Pulse Ox O2 Delivery O2 Flow Rate FiO2 04/30/19 08:46 98.3 04/30/19 08:12 78 132/83 04/30/19 08:00 98.3 78 19 132/83 (99) 98 04/30/19 08:00 30 04/30/19 07:57 84 04/30/19 07:17 Room Air 04/30/19 04:00 30 04/30/19 04:00 84 04/30/19 04:00 98.4 80 18 114/71 (85) 94 04/30/19 00:36 80 16 99 Full Face 30 04/30/19 00:00 97.8 81 20 113/63 (80) 100 04/30/19 00:00 87 04/30/19 00:00 30 04/29/19 22:40 79 18 98 Full Face 30 04/29/19 21:00 Room Air 04/29/19 21:00 80 85 95 04/29/19 20:00 97.9 82 18 100/89 (93) 95 04/29/19 20:00 82 04/29/19 17:30 86 121/75 (90) 04/29/19 16:32 80 04/29/19 16:00 30 04/29/19 15:45 98.1 72 19 97/62 (74) 97 04/29/19 12:00 30 04/29/19 12:00 98.0 79 18 127/63 (84) 96 04/29/19 11:35 89 Intake and Output 04/29/19 04/30/19 19:00 07:00 Intake Total 1000 ml Output Total 425 ml Balance -425 ml 1000 ml Intake Oral 1000 ml Output Urine Total 425 ml # Voids 1 4 Objective General Appearance: A/A/O obese male in NAD HEENT: normocephalic, atraumatic, anicteric, mucous membranes moist Respiratory/Chest: lungs clear, no respiratory distress, chest wall tender Cardiovascular: normal rate Abdomen: normal bowel sounds, soft, non tender - obese Extremities: no edema, pedal pulses normal Neurologic/Psychiatric: no motor/sensory deficits, alert, oriented x 3, responsive Lymphatic: no neck adenopathy Musculoskeletal: normal muscle bulk Laboratory Tests 04/30/19 07:05: White Blood Count 3.4L, Red Blood Count 4.65L, Hemoglobin 12.3L, Hematocrit 38.1L, Mean Corpuscular Volume 82, Mean Corpuscular Hemoglobin 26.4L, Mean Corpuscular Hemoglobin Concent 32.3, Red Cell Distribution Width 16.2H, Platelet Count 73L, Mean Platelet Volume 7.0, Neutrophils (%) (Auto) , Lymphocytes (%) (Auto) , Monocytes (%) (Auto) , Eosinophils (%) (Auto) , Basophils (%) (Auto) , Differential Total Cells Counted 100, Neutrophils % ( Manual) 51, Lymphocytes % (Manual) 40, Monocytes % (Manual) 7, Eosinophils % ( Manual) 2, Basophils % (Manual) 0, Band Neutrophils 0, Platelet Estimate DecreasedL, Platelet Morphology Normal, Anisocytosis 1+, Sodium Level 141, Potassium Level 3.8, Chloride Level 106, Carbon Dioxide Level 28, Anion Gap 7, Blood Urea Nitrogen 11, Creatinine 1.1, Estimat Glomerular Filtration Rate > 60 , Glucose Level 97, Calcium Level 8.0L, Total Bilirubin 0.5, Aspartate Amino Transf (AST/SGOT) 41H, Alanine Aminotransferase (ALT/SGPT) 35, Alkaline Phosphatase 101, Total Protein 7.2, Albumin 2.7L, Globulin 4.5, Albumin/ Globulin Ratio 0.6L Current Medications Medications (Trade) Dose Ordered Sig/Yan Route PRN Reason Start Time Stop Time Status Last Admin Dose Admin Acetaminophen (Tylenol) 650 mg Q4H PRN ORAL Mild Pain/Temp > 100.5 04/28/19 11:15 05/28/19 11:14 04/28/19 11:24 Acetaminophen/ Hydrocodone Bitart ([place] 5/325) 1 tab Q4H PRN ORAL Severe Pain (Pain Scale 7-10) 04/28/19 11:15 05/05/19 11:14 04/30/19 08:16 Amlodipine Besylate (Norvasc) 10 mg DAILY ORAL 04/28/19 09:00 05/28/19 08:59 04/30/19 08:12 Amoxicillin (Amoxil) 500 mg EVERY 8 HOURS ORAL 04/28/19 06:00 05/05/19 05:59 04/30/19 06:02 Gabapentin (Neurontin) 300 mg THREE TIMES A DAY ORAL 04/28/19 09:00 05/28/19 08:59 04/30/19 08:12 Lamotrigine (LaMICtal) 100 mg BID ORAL 04/28/19 09:00 05/28/19 08:59 04/30/19 08:12 Pantoprazole (Protonix) 40 mg DAILY ORAL 04/28/19 09:00 05/28/19 08:59 04/30/19 08:12 Sertraline HCl (Zoloft) 100 mg DAILY ORAL 04/28/19 09:00 05/28/19 08:59 04/30/19 08:12 Spironolactone (Aldactone) 25 mg BID ORAL 04/28/19 09:00 05/28/19 08:59 04/30/19 08:12 Tramadol HCl (Ultram) 50 mg Q6H PRN ORAL Moderate Pain (Pain Scale 4-6) 04/28/19 11:18 05/05/19 11:17 Trazodone HCl (Desyrel) 50 mg BEDTIME ORAL 04/28/19 21:00 05/28/19 20:59 04/29/19 21:29 Nuria Perry CONTROLLER REPAIRER AND TESTER Apr 30, 2019 09:52
--- NOTE | 2019-04-30 11:02 | NUR ---
HAND-OFF: Report given to MESFIN García 3E Pt transferred to room 302-1. pt stable, plan of care endorsed.
[2019-04-30] MEDS ORDERED: traMADol 50mg tab ORAL PRN (11:30)
--- NOTE | 2019-04-30 11:30 | NUR ---
NURSE NOTES: Patient arrived to unit at 1050 in stable condition via bed accompanied by RN, on RA. Patient is awake alert and oriented, no acute distress noted, patient is reporting mild pain in bilateral knees r/t fall at home. Patient oriented to room, CPAP at bedside for night time use. Fall precautions maintained. Side rails upx3, bed low and locked, call light within reach.
[2019-04-30 12:00] VITALS: BP 98/58
--- NOTE | 2019-04-30 14:04 | Internal Med Progress Note ---
Subjective Date of Service: Apr 30, 2019 Physician Name Fabian Wellington Attending Physician Joselo Price MD Current Medications Medications (Trade) Dose Ordered Sig/Yan Route PRN Reason Start Time Stop Time Status Last Admin Dose Admin Acetaminophen (Tylenol) 650 mg Q4H PRN ORAL Mild Pain/Temp > 100.5 04/30/19 11:15 05/28/19 11:14 Acetaminophen/ Hydrocodone Bitart ([place] 5/325) 1 tab Q4H PRN ORAL Severe Pain (Pain Scale 7-10) 04/30/19 11:15 05/05/19 11:14 Amlodipine Besylate (Norvasc) 10 mg DAILY ORAL 05/01/19 09:00 05/28/19 08:59 Amoxicillin (Amoxil) 500 mg EVERY 8 HOURS ORAL 04/30/19 14:00 05/05/19 05:59 04/30/19 13:38 Gabapentin (Neurontin) 300 mg THREE TIMES A DAY ORAL 04/30/19 13:00 05/28/19 08:59 04/30/19 13:38 Lamotrigine (LaMICtal) 100 mg BID ORAL 04/30/19 18:00 05/28/19 08:59 Pantoprazole (Protonix) 40 mg DAILY ORAL 05/01/19 09:00 05/28/19 08:59 Sertraline HCl (Zoloft) 100 mg DAILY ORAL 05/01/19 09:00 05/28/19 08:59 Spironolactone (Aldactone) 25 mg BID ORAL 04/30/19 18:00 05/28/19 08:59 Tramadol HCl (Ultram) 50 mg Q6H PRN ORAL Moderate Pain (Pain Scale 4-6) 04/30/19 11:30 05/05/19 11:17 Trazodone HCl (Desyrel) 50 mg BEDTIME ORAL 04/30/19 21:00 05/28/19 20:59 Allergies: Coded Allergies: No Known Allergies (Unverified , 04/27/19) ROS Limited/Unobtainable: No Constitutional: Reports: no symptoms HEENT: Reports: no symptoms Cardiovascular: Reports: no symptoms Respiratory: Reports: no symptoms Gastrointestinal/Abdominal: Reports: no symptoms Genitourinary: Reports: no symptoms Neurologic/Psychiatric: Reports: no symptoms Subjective 53 YO M admitted with syncope. Cover for Int Med-Dr Price Objective Last Vital Signs Date Time Temp Pulse Resp B/P (MAP) Pulse Ox O2 Delivery O2 Flow Rate FiO2 04/30/19 12:00 98.2 75 20 98/58 (71) 95 04/30/19 08:00 30 04/30/19 07:17 Room Air Laboratory Tests Test 04/30/19 07:05 White Blood Count 3.4 K/UL (4.8-10.8) L Red Blood Count 4.65 M/UL (4.70-6.10) L Hemoglobin 12.3 G/DL (14.2-18.0) L Hematocrit 38.1 % (42.0-52.0) L Mean Corpuscular Volume 82 FL (80-99) Mean Corpuscular Hemoglobin 26.4 PG (27.0-31.0) L Mean Corpuscular Hemoglobin Concent 32.3 G/DL (32.0-36.0) Red Cell Distribution Width 16.2 % (11.6-14.8) H Platelet Count 73 K/UL (150-450) L Mean Platelet Volume 7.0 FL (6.5-10.1) Neutrophils (%) (Auto) % (45.0-75.0) Lymphocytes (%) (Auto) % (20.0-45.0) Monocytes (%) (Auto) % (1.0-10.0) Eosinophils (%) (Auto) % (0.0-3.0) Basophils (%) (Auto) % (0.0-2.0) Differential Total Cells Counted 100 Neutrophils % (Manual) 51 % (45-75) Lymphocytes % (Manual) 40 % (20-45) Monocytes % (Manual) 7 % (1-10) Eosinophils % (Manual) 2 % (0-3) Basophils % (Manual) 0 % (0-2) Band Neutrophils 0 % (0-8) Platelet Estimate Decreased L Platelet Morphology Normal Anisocytosis 1+ Sodium Level 141 MMOL/L (136-145) Potassium Level 3.8 MMOL/L (3.5-5.1) Chloride Level 106 MMOL/L (98-107) Carbon Dioxide Level 28 MMOL/L (21-32) Anion Gap 7 mmol/L (5-15) Blood Urea Nitrogen 11 mg/dL (7-18) Creatinine 1.1 MG/DL (0.55-1.30) Estimat Glomerular Filtration Rate > 60 mL/min (>60) Glucose Level 97 MG/DL (74-106) Calcium Level 8.0 MG/DL (8.5-10.1) L Total Bilirubin 0.5 MG/DL (0.2-1.0) Aspartate Amino Transf (AST/SGOT) 41 U/L (15-37) H Alanine Aminotransferase (ALT/SGPT) 35 U/L (12-78) Alkaline Phosphatase 101 U/L (46-116) Total Protein 7.2 G/DL (6.4-8.2) Albumin 2.7 G/DL (3.4-5.0) L Globulin 4.5 g/dL Albumin/Globulin Ratio 0.6 (1.0-2.7) L Intake and Output 04/29/19 04/30/19 18:59 06:59 Intake Total 1000 ml Output Total 425 ml Balance -425 ml 1000 ml Intake Oral 1000 ml Output Urine Total 425 ml # Voids 1 4 Objective PHYSICAL EXAMINATION: GENERAL: The patient is awake, responsive, no acute distress. HEAD AND NECK: Pupils are reactive to light. Extraocular movements intact. Neck was supple. No JVD. LUNGS: Clear. No wheezes or rales. Decreased air entry in the bases. HEART: S1, S2. Distant heart sounds. Irregular. No murmur or gallop was appreciated. ABDOMEN: Soft, nondistended, nontender. Morbidly obese. No rebound tenderness. No fluid shift. EXTREMITIES: No cyanosis, clubbing. Trace ankle edema NEUROLOGIC: Cranial nerves II through XII grossly intact. Motor is 5/5. Gait was not assessed due to the patient's status. RECTAL: Refused and deferred. GENITOURINARY: Refused and deferred. PSYCHIATRIC: Mood and affect is intact. Assessment/Plan Assessment/Plan ASSESSMENT: 1. Syncope and collapse, most likely secondary to hypotension, possible dehydration. 2. Chronic atrial fibrillation. 3. Obstructive sleep apnea, on CPAP. 4. Morbid obesity. 5. History of PUCKETT. 6. History of hypertension. 7. Thrombocytopenia. 8. Chronic kidney disease, stage II. 9. Left foot second toe dislocation, status post of rearrangement and replacement fixed displacement. 10. Dental infection with dental cavities. PLAN: 1. Admit the patient to monitored unit. We will follow up with Dr. Beckford from Pulmonary Critical Care and Dr. Aldana from Cardiology. 2. Resume home medication. 3. Monitor blood pressure closely. 4. Monitor laboratory in the morning. 5. Code status, Full Code. 6. DVT prophylaxis, heparin subcutaneous. 7. 2D echo LVEF=60%. Fabian Wellington MD Apr 30, 2019 14:04
[2019-04-30 16:00] VITALS: BP 130/70
--- NOTE | 2019-04-30 16:52 | Consultation ---
Consult Note Assessment/Plan Cardiology for Dr. Aldana Full consult dictated #[id number] Luna Fairchild MD Apr 30, 2019 16:52
--- NOTE | 2019-04-30 18:30 | Consultation ---
DATE OF CONSULTATION: 04/30/2019 CARDIOLOGY CONSULTATION This is being done as coverage for Dr. Narendra Aldana M.D. REASON FOR CARDIOLOGY CONSULTATION: Syncope. HISTORY OF PRESENT ILLNESS: The patient is a 53-year-old white male with a history of permanent atrial fibrillation, morbid obesity, duodenal polyps with previous GI bleed, nonalcoholic steatohepatitis (PUCKETT) and hypertension, who was admitted on 04/27/2019 following a syncopal episode. He reports that he had not eaten much over the two days prior to admission due to the left toothache. On the evening of admission, he had diarrhea and had a large amount of dark stool. He then got up from the toilet and had a sudden syncopal episodes. He attempted to get up but then had two additional syncopal episodes. He hit his head on one episode preceded by dizziness. He then attempted to get up and had two additional syncopal episode. The paramedics were called by his neighbor. He was brought to [facility] for further treatment. In the emergency room, his pressure was reported at 92/72, and pulse 86. He was admitted for further treatment. Cardiology evaluation was requested. The patient reports that he has had previous syncope while getting blood drawn several years ago. His cardiac history is also significant for permanent atrial fibrillation for at least 3 to 4 years. He has had attempts at electrical cardioversion (2) which were not successful. He has obstructive sleep apnea treated with CPAP. MEDICATIONS: Amlodipine 10 mg daily, Protonix 40 mg daily, Zoloft 100 mg daily, trazodone 50 mg at bedtime, Lamictal 100 mg twice a day, Aldactone 25 mg twice a day, amoxicillin 500 mg q. 8 hours, gabapentin 300 mg three times daily, tramadol 50 mg q.6 hours as needed, [place] 5/325 mg q.4 hours needed. ALLERGIES: No known drug allergies. PAST MEDICAL HISTORY: As noted above. PAST SURGICAL HISTORY: Status post L3-L4 laminectomy in 1992. SOCIAL HISTORY: The patient is a nonsmoker. No history of alcohol or drug abuse. PHYSICAL EXAMINATION: VITAL SIGNS: Blood pressure is 130/70, pulse 90 regular, respirations 20, and afebrile. GENERAL: Alert, morbidly obese white male, in no acute distress. HEENT: Normocephalic and atraumatic. Pupils are equal, round, and reactive to light. Sclerae anicteric. Oral mucosa are moist. NECK: Supple. There is no jugular venous distention. No carotid bruits. LUNGS: Clear to auscultation bilaterally. HEART: Irregularly irregular. S1 and S2 with no murmur or S3. ABDOMEN: Soft, nontender. No palpable mass. EXTREMITIES: No cyanosis, clubbing, or edema. NEUROLOGIC: No focal motor deficits. LABORATORY AND DIAGNOSTIC DATA: Hemoglobin 12.3, white blood count 3400, platelets 73,000. Sodium 141, potassium 3.8, chloride 106, bicarb 28, BUN 11, creatinine 1.1. Troponin 0.002. INR 1.1. EKG shows atrial fibrillation with ventricular rate of 77 beats per minute, axis +30 degrees, no ST-segment or T-wave changes. Echo reported to be a technically difficult study shows ejection fraction 60%, grossly normal left ventricular function with mild left ventricular hypertrophy, no significant valve lesions. Head CT done in the ER showed no mass effect, edema, or acute bleed. ASSESSMENT AND RECOMMENDATIONS: The patient is a 53-year-old man with history of PUCKETT obstructive sleep apnea, hypertension, and permanent atrial fibrillation as well as history of duodenal polyps and previous GI bleed who was admitted following a syncopal episode, this occurred in the setting of possible dehydration with low oral intake over two days prior to admission as well as acute episodes of diarrhea. The syncope was likely due to hypotension, possibly also a vasovagal response. He does not appear with evidence for an acute coronary syndrome or any acute arrhythmia that would have caused this episode. I would recommend evaluation for possible gastrointestinal bleed. At this time, I would follow orthostatic vital signs. We would continue his current medications. Consider decreasing Aldactone to once daily. We would continue off anticoagulation as his score is 1 and given history of gastrointestinal bleeding Dr. Aldana will continue to follow the patient on 05/01/2019. Thank you for involving us in his care. Luna Fairchild M.D. DR: Pillo JOB#: [id number] CC:
--- NOTE | 2019-04-30 19:23 | NUR ---
HAND-OFF: Report given to Cat MAYBERRY.
--- NOTE | 2019-04-30 19:54 | NUR ---
NURSE NOTES: Received report from SHAWANDA Benson. Pt in bed, awake, talkative, pt is A/Ox4 no apparent distress noted, bed, locked in lowest position, call light within reach, discussed plan of care with pt. will continue to monitor
[2019-04-30 20:00] VITALS: BP 117/66
[2019-04-30] MEDS: TraZODone 50mg tab ORAL SCH (22:03)
[2019-05-01] VITALS: BP 120/64
[2019-05-01 04:00] VITALS: BP 115/68
[2019-05-01 05:44] LABS: HEMATOCRIT 35.1 % (42.0-52.0); HEMOGLOBIN 11.5 G/DL (14.2-18.0); MEAN CORPUSCULAR VOLUME 80 FL (80-99); PLATELET COUNT 61 K/UL (150-450); RED BLOOD COUNT 4.39 M/UL (4.70-6.10); RED CELL DISTRIBUTION WIDTH 14.5 % (11.6-14.8)
[2019-05-01 06:15] LABS: ANION GAP 8 mmol/L (5-15); BLOOD UREA NITROGEN 12 mg/dL (7-18); CALCIUM 8.2 MG/DL (8.5-10.1); CARBON DIOXIDE 27 MMOL/L (21-32); CHLORIDE 107 MMOL/L (98-107); POTASSIUM 3.9 MMOL/L (3.5-5.1); SODIUM 142 MMOL/L (136-145)
--- NOTE | 2019-05-01 07:30 | NUR ---
NURSE NOTES: Pt lying in bed w/bed in lowest position and call light within reach. Pt A&Ox4, VSS, and in no apparent distress. IV site intact/asymptomatic & H/L'd and skin intact. Pt has no complaints or concerns at this time. Will continue to monitor.
--- NOTE | 2019-05-01 07:45 | NUR ---
HAND-OFF: Report given to SHAWANDA Metz.
[2019-05-01 08:00] VITALS: BP 132/79
[2019-05-01] MEDS: Spironolactone 25mg tab ORAL SCH ×2 (08:52→18:00)
[2019-05-01] MEDS: Sertraline 100mg tab ORAL SCH (09:03)
[2019-05-01] MEDS: HYDROcodone/Acetamin 5/325 tab ORAL PRN ×2 (10:04→21:34)
[2019-05-01 12:00] VITALS: BP 111/69
--- NOTE | 2019-05-01 12:50 | Pulmonology Progress Note ---
Assessment/Plan Problems: (1) Hypotensive syncope (2) Acute encephalopathy (3) Atrial fibrillation (4) SHARDA (obstructive sleep apnea) (5) Morbid obesity with BMI of 40.0-44.9, adult (6) PUCKETT (nonalcoholic steatohepatitis) (7) History of hypertension Assessment/Plan doing better bp stable heart rate stable some pain in knees doesn't want to go to rehab Subjective ROS Limited/Unobtainable: No Constitutional: Reports: no symptoms HEENT: Repors: no symptoms Respiratory: Reports: no symptoms Allergies: Coded Allergies: No Known Allergies (Unverified , 04/27/19) Objective Last 24 Hour Vital Signs Date Time Temp Pulse Resp B/P (MAP) Pulse Ox O2 Delivery O2 Flow Rate FiO2 05/01/19 12:00 97.7 79 20 111/69 (83) 95 05/01/19 09:00 84 86 85 05/01/19 09:00 Room Air 05/01/19 08:52 88 132/79 05/01/19 08:00 97.4 88 20 132/79 (96) 95 05/01/19 04:00 98.2 78 16 115/68 (84) 97 05/01/19 00:00 98.1 73 17 120/64 (82) 96 04/30/19 21:00 Room Air 04/30/19 20:00 98.3 77 18 117/66 (83) 96 04/30/19 16:00 97.9 90 20 130/70 (90) 97 Intake and Output 04/30/19 05/01/19 19:00 07:00 Intake Total 800 ml 480 ml Output Total 1400 ml 1400 ml Balance -600 ml -920 ml Intake Oral 800 ml 480 ml Output Urine Total 1400 ml 1400 ml # Voids 3 2 General Appearance: WD/WN HEENT: normocephalic, anicteric Respiratory/Chest: chest wall non-tender, lungs clear Cardiovascular: normal rate, regular rhythm Abdomen: normal bowel sounds, non distended Extremities: no cyanosis Skin: no rash Laboratory Tests 05/01/19 05:00: White Blood Count 3.0L, Red Blood Count 4.39L, Hemoglobin 11.5L, Hematocrit 35.1L, Mean Corpuscular Volume 80, Mean Corpuscular Hemoglobin 26.3L, Mean Corpuscular Hemoglobin Concent 32.9, Red Cell Distribution Width 14.5, Platelet Count 61L, Mean Platelet Volume 6.6, Neutrophils (%) (Auto) , Lymphocytes (%) ( Auto) , Monocytes (%) (Auto) , Eosinophils (%) (Auto) , Basophils (%) (Auto) , Differential Total Cells Counted 100, Neutrophils % (Manual) 57, Lymphocytes % ( Manual) 31, Monocytes % (Manual) 9, Eosinophils % (Manual) 3, Basophils % ( Manual) 0, Band Neutrophils 0, Platelet Estimate DecreasedL, Platelet Morphology Normal, Anisocytosis 1+, Sodium Level 142, Potassium Level 3.9, Chloride Level 107, Carbon Dioxide Level 27, Anion Gap 8, Blood Urea Nitrogen 12 , Creatinine 1.0, Estimat Glomerular Filtration Rate > 60, Glucose Level 91, Calcium Level 8.2L Current Medications Medications (Trade) Dose Ordered Sig/Yan Route PRN Reason Start Time Stop Time Status Last Admin Dose Admin Acetaminophen (Tylenol) 650 mg Q4H PRN ORAL Mild Pain/Temp > 100.5 04/30/19 11:15 05/28/19 11:14 Acetaminophen/ Hydrocodone Bitart ([place] 5/325) 1 tab Q4H PRN ORAL Severe Pain (Pain Scale 7-10) 04/30/19 11:15 05/05/19 11:14 05/01/19 10:04 Amlodipine Besylate (Norvasc) 10 mg DAILY ORAL 05/01/19 09:00 05/28/19 08:59 05/01/19 08:52 Amoxicillin (Amoxil) 500 mg EVERY 8 HOURS ORAL 04/30/19 14:00 05/05/19 05:59 05/01/19 07:01 Gabapentin (Neurontin) 300 mg THREE TIMES A DAY ORAL 04/30/19 13:00 05/28/19 08:59 05/01/19 08:52 Lamotrigine (LaMICtal) 100 mg BID ORAL 04/30/19 18:00 05/28/19 08:59 05/01/19 08:52 Pantoprazole (Protonix) 40 mg DAILY ORAL 05/01/19 09:00 05/28/19 08:59 05/01/19 08:52 Sertraline HCl (Zoloft) 100 mg DAILY ORAL 05/01/19 09:00 05/28/19 08:59 05/01/19 09:03 Spironolactone (Aldactone) 25 mg BID ORAL 04/30/19 18:00 05/28/19 08:59 05/01/19 08:52 Tramadol HCl (Ultram) 50 mg Q6H PRN ORAL Moderate Pain (Pain Scale 4-6) 04/30/19 11:30 05/05/19 11:17 Trazodone HCl (Desyrel) 50 mg BEDTIME ORAL 04/30/19 21:00 05/28/19 20:59 04/30/19 22:03 Quentin Beckford MD May 01, 2019 12:50
[2019-05-01] MEDS ORDERED: LAMICTAL100 MG ORAL (12:53)
[2019-05-01] MEDS ORDERED: AMOXIL250 MG ORAL (12:53)
[2019-05-01] MEDS ORDERED: SPIRONOLACTONE25 MG ORAL (12:53)
[2019-05-01] MEDS ORDERED: SERTRALINE HCL100 MG ORAL (12:53)
[2019-05-01] MEDS ORDERED: TRAMADOL HCL50 MG ORAL (12:53)
[2019-05-01] MEDS ORDERED: DESYREL50 MG ORAL (12:53)
[2019-05-01] MEDS ORDERED: NEURONTIN300 MG ORAL (12:53)
[2019-05-01] MEDS ORDERED: NORVASC10 MG ORAL (12:53)
[2019-05-01 16:00] VITALS: BP 103/52
--- NOTE | 2019-05-01 18:46 | Internal Med Progress Note ---
Subjective Date of Service: May 01, 2019 Physician Name Fabian Wellington Attending Physician Joselo Price MD Current Medications Medications (Trade) Dose Ordered Sig/Yan Route PRN Reason Start Time Stop Time Status Last Admin Dose Admin Acetaminophen (Tylenol) 650 mg Q4H PRN ORAL Mild Pain/Temp > 100.5 04/30/19 11:15 05/28/19 11:14 Acetaminophen/ Hydrocodone Bitart ([place] 5/325) 1 tab Q4H PRN ORAL Severe Pain (Pain Scale 7-10) 04/30/19 11:15 05/05/19 11:14 05/01/19 10:04 Amlodipine Besylate (Norvasc) 10 mg DAILY ORAL 05/01/19 09:00 05/28/19 08:59 05/01/19 08:52 Amoxicillin (Amoxil) 500 mg EVERY 8 HOURS ORAL 04/30/19 14:00 05/05/19 05:59 05/01/19 13:49 Gabapentin (Neurontin) 300 mg THREE TIMES A DAY ORAL 04/30/19 13:00 05/28/19 08:59 05/01/19 18:17 Lamotrigine (LaMICtal) 100 mg BID ORAL 04/30/19 18:00 05/28/19 08:59 05/01/19 18:17 Pantoprazole (Protonix) 40 mg DAILY ORAL 05/01/19 09:00 05/28/19 08:59 05/01/19 08:52 Sertraline HCl (Zoloft) 100 mg DAILY ORAL 05/01/19 09:00 05/28/19 08:59 05/01/19 09:03 Spironolactone (Aldactone) 25 mg BID ORAL 04/30/19 18:00 05/28/19 08:59 05/01/19 08:52 Tramadol HCl (Ultram) 50 mg Q6H PRN ORAL Moderate Pain (Pain Scale 4-6) 04/30/19 11:30 05/05/19 11:17 Trazodone HCl (Desyrel) 50 mg BEDTIME ORAL 04/30/19 21:00 05/28/19 20:59 04/30/19 22:03 Allergies: Coded Allergies: No Known Allergies (Unverified , 04/27/19) ROS Limited/Unobtainable: No Constitutional: Reports: no symptoms HEENT: Reports: no symptoms Cardiovascular: Reports: no symptoms Respiratory: Reports: no symptoms Gastrointestinal/Abdominal: Reports: no symptoms Genitourinary: Reports: no symptoms Neurologic/Psychiatric: Reports: no symptoms Subjective 53 YO M admitted with syncope. Cover for Int Ed-Dr Price Objective Last Vital Signs Date Time Temp Pulse Resp B/P (MAP) Pulse Ox O2 Delivery O2 Flow Rate FiO2 05/01/19 16:00 98.1 68 20 103/52 (69) 95 05/01/19 09:00 Room Air 04/30/19 08:00 30 Laboratory Tests Test 05/01/19 05:00 White Blood Count 3.0 K/UL (4.8-10.8) L Red Blood Count 4.39 M/UL (4.70-6.10) L Hemoglobin 11.5 G/DL (14.2-18.0) L Hematocrit 35.1 % (42.0-52.0) L Mean Corpuscular Volume 80 FL (80-99) Mean Corpuscular Hemoglobin 26.3 PG (27.0-31.0) L Mean Corpuscular Hemoglobin Concent 32.9 G/DL (32.0-36.0) Red Cell Distribution Width 14.5 % (11.6-14.8) Platelet Count 61 K/UL (150-450) L Mean Platelet Volume 6.6 FL (6.5-10.1) Neutrophils (%) (Auto) % (45.0-75.0) Lymphocytes (%) (Auto) % (20.0-45.0) Monocytes (%) (Auto) % (1.0-10.0) Eosinophils (%) (Auto) % (0.0-3.0) Basophils (%) (Auto) % (0.0-2.0) Differential Total Cells Counted 100 Neutrophils % (Manual) 57 % (45-75) Lymphocytes % (Manual) 31 % (20-45) Monocytes % (Manual) 9 % (1-10) Eosinophils % (Manual) 3 % (0-3) Basophils % (Manual) 0 % (0-2) Band Neutrophils 0 % (0-8) Platelet Estimate Decreased L Platelet Morphology Normal Anisocytosis 1+ Sodium Level 142 MMOL/L (136-145) Potassium Level 3.9 MMOL/L (3.5-5.1) Chloride Level 107 MMOL/L (98-107) Carbon Dioxide Level 27 MMOL/L (21-32) Anion Gap 8 mmol/L (5-15) Blood Urea Nitrogen 12 mg/dL (7-18) Creatinine 1.0 MG/DL (0.55-1.30) Estimat Glomerular Filtration Rate > 60 mL/min (>60) Glucose Level 91 MG/DL (74-106) Calcium Level 8.2 MG/DL (8.5-10.1) L Intake and Output 04/30/19 05/01/19 18:59 06:59 Intake Total 800 ml 480 ml Output Total 1400 ml 1400 ml Balance -600 ml -920 ml Intake Oral 800 ml 480 ml Output Urine Total 1400 ml 1400 ml # Voids 3 2 Objective PHYSICAL EXAMINATION: GENERAL: The patient is awake, responsive, no acute distress. HEAD AND NECK: Pupils are reactive to light. Extraocular movements intact. Neck was supple. No JVD. LUNGS: Clear. No wheezes or rales. Decreased air entry in the bases. HEART: S1, S2. Distant heart sounds. Irregular. No murmur or gallop was appreciated. ABDOMEN: Soft, nondistended, nontender. Morbidly obese. No rebound tenderness. No fluid shift. EXTREMITIES: No cyanosis, clubbing. Trace ankle edema NEUROLOGIC: Cranial nerves II through XII grossly intact. Motor is 5/5. Gait was not assessed due to the patient's status. RECTAL: Refused and deferred. GENITOURINARY: Refused and deferred. PSYCHIATRIC: Mood and affect is intact. Assessment/Plan Assessment/Plan ASSESSMENT: 1. Syncope and collapse, most likely secondary to hypotension, possible dehydration. 2. Chronic atrial fibrillation. 3. Obstructive sleep apnea, on CPAP. 4. Morbid obesity. 5. History of PUCKETT. 6. History of hypertension. 7. Thrombocytopenia. 8. Chronic kidney disease, stage II. 9. Left foot second toe dislocation, status post of rearrangement and replacement fixed displacement. 10. Dental infection with dental cavities. PLAN: 1. Admit the patient to monitored unit. We will follow up with Dr. Beckford from Pulmonary Critical Care and Dr. Aldana from Cardiology. 2. Resume home medication. 3. Monitor blood pressure closely. 4. Monitor laboratory in the morning. 5. Code status, Full Code. 6. DVT prophylaxis, heparin subcutaneous. 7. 2D echo LVEF=60%. Fabian Wellington MD May 01, 2019 18:46
--- NOTE | 2019-05-01 19:27 | NUR ---
HAND-OFF: Report given to SHAWANDA Mcpherson. Endorsed that pt is to be discharged today pending Dr. Borjas's consult. Med Recon done by Dr. Beckford.
--- NOTE | 2019-05-01 19:58 | NUR ---
NURSES NOTE: Received pt laying in bed A/OX4, pt is able to express needs. No s/s of distress noted. Breathing is even and unlabored on RA. Patient denies pain at this time. Patient is ambulatory with walker and states he will get up and walk around the naqvi. Hep lock in (L) hand 24 gauge shows no signs of infection. Discharge tonight pending Dr. Pratt visit. Patient states he does not feel comfortable being discharged tonight due to mobility issues and living up on the top floor. Will f/u with gris and relay patients concerns to the doctor. All due meds will be given. Bed at lowest level. Call light within reach.
[2019-05-01 21:00] VITALS: BP 103/68
[2019-05-01] MEDS: TraZODone 50mg tab ORAL SCH (21:34)
--- NOTE | 2019-05-01 22:39 | NUR ---
NURSES NOTE: Followed up with Dr Borjas on seeing the patient. Dr Borjas was able to come speak to patient. Patient expressed that he wanted a MRI done of bilateral knees and that he does not feel comfortable being discharged tonight due to pain in bilateral knees, mobility issues, living on the top floor, and living by himself. Dr. Borjas stated that he did not have to be discharged tonight, but he is fine to go home tmrw as MRI had been done in the past and he is not a candidate for surgery due to medical Hx. We can look into getting him knee braces if necessary. Stool sample collected. Sent down to lab.
[2019-05-02] VITALS: BP 111/72
--- NOTE | 2019-05-02 | Consultation ---
DATE OF CONSULTATION: 05/01/2019 CHIEF COMPLAINT: Bilateral knee pain. HISTORY OF PRESENT ILLNESS: The patient is a 53-year-old gentleman with very complicated medical history. He was supposed to be discharged to home after being cleared from a syncope episode that he sustained last week. He was complaining of bilateral knee symptoms and therefore Orthopedic consultation was obtained. The patient of note had an MRI of the left knee approximately a year ago which showed MCL sprain as well as meniscal tearing and some ongoing arthritis. He had some imaging studies of the knee, which did not show acute fracture or dislocations. Orthopedic consultation was obtained for further care and recommendation. PAST MEDICAL HISTORY: Per intake chart. PAST SURGICAL HISTORY: Per intake chart. MEDICATIONS: Per intake chart. PHYSICAL EXAMINATION: GENERAL: The patient is resting comfortably in examination bed. VITAL SIGNS: Afebrile. Stable vital signs. EXTREMITIES: Right knee examination shows pain on medial joint line. Posterior calf is soft. Neurovascular is normal. Full range of motion. Left knee examination shows pain along the joint line. Positive Augie test varus and valgus stressing. LABORATORY AND DIAGNOSTIC DATA: Three-views of the right and left knee reviewed and show some flattening of the medial femoral condyle. No fracture, dislocation, or soft tissue. Narrowing medial compartment space. ASSESSMENT: 1. Bilateral knee early arthritis with medial femoral condyle flattening to his left knee. 2. History of previous meniscus tear/MCL sprain. 3. Right knee possible internal derangement of meniscal tear. DISCUSSION: At this point, I am not sure exactly what acute tissue he has. The patient did have a fall. He reports that his left knee is more symptomatic than his right. In terms of his left knee, he has been able to get up and around with a walker, but has concerns being able to use the toilet at home. He is requesting, I believe will raise toilet seat or bedside commode. As related to his left knee, I discussed with him that he probably has a meniscus tear there. The meniscus tear does not heal because of avascular structure and during these recent episodes of fall he may have made the meniscus tear larger. Unfortunately was really no orthopedic intervention that can be done at this present time, given that he has high risk of medical complications given his cirrhosis, low platelets, recent gastrointestinal bleed as well as weight, as well as his atrial fibrillation issues. At this point, medical management. If he is not safe to go home, he should be discharged to a [place] [facility] care facility. The patient does want to go rehabilitation center because he is attending college on Wednesday and therefore at this point, what I recommend is continue medical management and discharge planning. The patient does need some DME's which are not reasonable. Outpatient follow up once he is medically optimized. If he has continued issues, we will look forward. Bryce Borjas M.D. DR: Raffi JOB#: [id number] CC: OVI
--- NOTE | 2019-05-02 01:57 | NUR ---
NURSES NOTE: Endorsing d/c to AM shift as pt did not want to go home 05/01/19. Pt requesting a forward wheel walker, knee braces and a raised toilet seat to be sent home with him before he feels comfortable being discharged 05/02/19. Pls contact case management so these things (DME) can be arranged.
--- NOTE | 2019-05-02 03:10 | NUR ---
NURSES NOTE: Case management consult order placed for DME. Discharge endorsed as patient refused to be discharged 05/01/19 until DME ordered and/or he can speak to Dr Price. Report given to Mel MAYBERRY/Ambreen MAYBERRY. Patient in stable condition.
--- NOTE | 2019-05-02 03:13 | NUR ---
NURSE NOTES: Received report & pt from SHAWANDA Cook for continuity of care. Pt a&ox4, in room air, no s/s of acute distress & no c/o pain at his time. IV site intact & S/L'd. Bed in lowest position, call light within reach. Will continue to monitor.
[2019-05-02 04:00] VITALS: BP 126/87
--- NOTE | 2019-05-02 07:26 | NUR ---
HAND-OFF: Report given to SHAWANDA Colon. Rounds done.
--- NOTE | 2019-05-02 07:27 | NUR ---
NURSE NOTES: Received patient awake alert and oriented, sitting up comfortably in bed. IV site at left hand, 24 gauge, saline lock. Bed at lowest level with 3 side rails up. Call light within reach. In no apparent distress at this time. Will continue to monitor.
[2019-05-02 08:00] VITALS: BP 129/81
[2019-05-02] MEDS: Sertraline 100mg tab ORAL SCH (08:46)
[2019-05-02] MEDS: Spironolactone 25mg tab ORAL SCH (08:47)
--- NOTE | 2019-05-02 11:22 | Cardiology Progress Note ---
Assessment/Plan Assessment/Plan PUCKETT obstructive sleep apnea, hypertension permanent atrial fibrillation history of duoden syncopal episode knee pain \ doign well bp is fien avoid straining fu as out with pmd fu with me as needed Subjective Cardiovascular: Denies: chest pain, lightheadedness, palpitations Respiratory: Denies: shortness of breath Gastrointestinal/Abdominal: Denies: abdominal pain Genitourinary: Denies: burning Objective Last 24 Hour Vital Signs Date Time Temp Pulse Resp B/P (MAP) Pulse Ox O2 Delivery O2 Flow Rate FiO2 05/02/19 09:33 82 81 83 05/02/19 09:00 Room Air 05/02/19 08:46 81 129/81 05/02/19 08:00 97.8 81 5 129/81 (97) 97 05/02/19 04:00 98.2 87 18 126/87 (100) 97 05/02/19 00:00 98.2 76 17 111/72 (85) 96 05/01/19 22:31 77 16 96 21 05/01/19 21:00 Room Air 05/01/19 21:00 98.4 72 19 103/68 (80) 98 05/01/19 16:00 98.1 68 20 103/52 (69) 95 05/01/19 12:00 97.7 79 20 111/69 (83) 95 General Appearance: alert Neck: supple Cardiovascular: normal rate, regular rhythm Respiratory/Chest: lungs clear Abdomen: normal bowel sounds, non tender, soft Extremities: no swelling Intake and Output 05/01/19 05/02/19 19:00 07:00 Intake Total 720 ml 1400 ml Output Total 1100 ml 3000 ml Balance -380 ml -1600 ml Intake Oral 720 ml 1400 ml Output Urine Total 1100 ml 3000 ml # Voids 4 # Bowel Movements 1 Laboratory Tests Test 05/01/19 23:00 Stool Occult Blood Pending Narendra Aldana MD May 02, 2019 11:22
[2019-05-02 12:00] VITALS: BP 131/72
--- NOTE | 2019-05-02 12:38 | Pulmonology Progress Note ---
Assessment/Plan Problems: (1) Hypotensive syncope (2) Acute encephalopathy (3) Atrial fibrillation (4) SHARDA (obstructive sleep apnea) (5) Morbid obesity with BMI of 40.0-44.9, adult (6) PUCKETT (nonalcoholic steatohepatitis) (7) History of hypertension Assessment/Plan doing better bp stable heart rate stable some pain in knees doesn't want to go to rehab seen by ortho a prescription for "3 in 1 commode" given Subjective ROS Limited/Unobtainable: No Constitutional: Reports: no symptoms HEENT: Repors: no symptoms Respiratory: Reports: no symptoms Allergies: Coded Allergies: No Known Allergies (Unverified , 04/27/19) Objective Last 24 Hour Vital Signs Date Time Temp Pulse Resp B/P (MAP) Pulse Ox O2 Delivery O2 Flow Rate FiO2 05/02/19 12:00 97.7 102 18 131/72 (91) 98 05/02/19 09:33 82 81 83 05/02/19 09:00 Room Air 05/02/19 08:46 81 129/81 05/02/19 08:00 97.8 81 18 129/81 (97) 97 05/02/19 04:00 98.2 87 18 126/87 (100) 97 05/02/19 00:00 98.2 76 17 111/72 (85) 96 05/01/19 22:31 77 16 96 21 05/01/19 21:00 Room Air 05/01/19 21:00 98.4 72 19 103/68 (80) 98 05/01/19 16:00 98.1 68 20 103/52 (69) 95 Intake and Output 05/01/19 05/02/19 19:00 07:00 Intake Total 720 ml 1400 ml Output Total 1100 ml 3000 ml Balance -380 ml -1600 ml Intake Oral 720 ml 1400 ml Output Urine Total 1100 ml 3000 ml # Voids 4 # Bowel Movements 1 General Appearance: WD/WN HEENT: normocephalic, atraumatic Respiratory/Chest: chest wall non-tender, lungs clear Cardiovascular: normal peripheral pulses, regular rhythm Abdomen: normal bowel sounds, soft, non tender Genitourinary: normal external genitalia Extremities: no cyanosis Skin: no lesions Neurologic/Psychiatric: 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 grossly normal Laboratory Tests 05/01/19 23:00: Stool Occult Blood Positive Current Medications Medications (Trade) Dose Ordered Sig/Yan Route PRN Reason Start Time Stop Time Status Last Admin Dose Admin Acetaminophen (Tylenol) 650 mg Q4H PRN ORAL Mild Pain/Temp > 100.5 04/30/19 11:15 05/28/19 11:14 Acetaminophen/ Hydrocodone Bitart (Allen 5/325) 1 tab Q4H PRN ORAL Severe Pain (Pain Scale 7-10) 04/30/19 11:15 05/05/19 11:14 05/01/19 21:34 Amlodipine Besylate (Norvasc) 10 mg DAILY ORAL 05/01/19 09:00 05/28/19 08:59 05/02/19 08:46 Amoxicillin (Amoxil) 500 mg EVERY 8 HOURS ORAL 04/30/19 14:00 05/05/19 05:59 05/02/19 06:10 Gabapentin (Neurontin) 300 mg THREE TIMES A DAY ORAL 04/30/19 13:00 05/28/19 08:59 05/02/19 08:46 Lamotrigine (LaMICtal) 100 mg BID ORAL 04/30/19 18:00 05/28/19 08:59 05/02/19 08:46 Pantoprazole (Protonix) 40 mg DAILY ORAL 05/01/19 09:00 05/28/19 08:59 05/02/19 08:46 Sertraline HCl (Zoloft) 100 mg DAILY ORAL 05/01/19 09:00 05/28/19 08:59 05/02/19 08:46 Spironolactone (Aldactone) 25 mg BID ORAL 04/30/19 18:00 05/28/19 08:59 05/02/19 08:47 Tramadol HCl (Ultram) 50 mg Q6H PRN ORAL Moderate Pain (Pain Scale 4-6) 04/30/19 11:30 05/05/19 11:17 Trazodone HCl (Desyrel) 50 mg BEDTIME ORAL 04/30/19 21:00 05/28/19 20:59 05/01/19 21:34 Quentin Beckford MD May 02, 2019 12:38
--- NOTE | 2019-05-02 12:53 | CDS Physician Query ---
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 The patient presented to the emergency room after had a syncopal episode. The patient stated that he went to the bathroom, had a bowel movement profuse, and noticed a dark blackish color. He got up, had a syncopal episode, and hit his back of his head. He passed out 3 times. "Acute Encephalopathy" documented in Cunsultation notes Please indicate the nature and chronicity of the condition below: [] Metabolic Encephalopathy [] Toxic Encephalopathy [] Toxic - Metabolic Encephalopathy [] Encephalopathy, Other [] Dementia with Delirium [] Hypoxic encephalopathy [] Posterior reversible encephalopathy syndrome [X] Other: ____vasovagal syncope [] Not Applicae Present on Admission: [x] Yes [] No [] Clinically Undetermined Physician signature Date Please also document in your Progress Notes and/or Discharge Summary and indicate if the condition was present on admission. OVI
--- NOTE | 2019-05-02 13:37 | NUR ---
DISCHARGE PLAN PATIENT IS GOING HOME FAXED PRESCRIPTION FOR 3:1 COMMODE TO [facility] T: [phone] F: [phone] SPOKE WITH DESHAUN PATIENT IS READY TO DISCHARGE
--- NOTE | 2019-05-02 14:13 | NUR ---
NURSE NOTES: Patient discharged. IV and ID band removed. Belongings reconciled with patient. Discharge instructions given and patient verbalized understanding. Escorted from facility without incident or injury by personnel.
--- NOTE | 2019-05-03 09:06 | Discharge Summary ---
Discharge Summary Discharge Summary _ DATE OF ADMISSION: 04/27/2019 DATE OF DISCHARGE: 05/02/2019 DISCHARGED BY: Dr. Price REASON FOR ADMISSION: 53 years old male with past medical history of atrial fibrillation, obstructive sleep apnea, on CPAP at home, history of NICHOLAS, morbid obesity, history of GI bleeding due to duodenal polyp, requiring blood transfusion, presented to emergency department after syncopal episode. Patient reported passing out 3 times. He reported hitting the back of his head. Patient also reported pain in bilateral knees when trying to get up. Patient sustained injury to the left second toe. He denied chest pain or palpitations prior to episodes. He denied double vision. He denied bowel or urine incontinence. Upon evaluation in emergency department blood pressure was on the low side 92/ 72. Pulse oximetry was 99% on room air. CT of the head revealed no acute intracranial pathology. Left foot x-ray revealed dislocated PIP joint second toe. Chest x-ray revealed suspected CHF. In emergency department patient undergone reduction of PIP joint of the second toe. Laboratory work-up revealed no leukocytosis, stable hemoglobin and hematocrit , platelet count 98. BUN 14, creatinine 1.4. AST 75, ALT 58, alkaline phosphatase 133. Troponin negative, pro BNP 92. EKG revealed atrial fibrillation with controlled ventricular response. Patient also complained of dental pain in the left lower jaw. Patient apparently had a cracked tooth , which had been painful for the last two weeks . Patient was told that he needs a root canal. In emergency department patient undergone dental block with 1% lidocaine without epinephrine. Patient subsequently admitted for further management. CONSULTANTS: slide forming machine operator Dr. Aldana hospitalist/critical care Dr. Beckford orthopedic surgery Dr. Borjas [facility] COURSE: Patient admitted to telemetry floor. Head Of Acquisitions and senior accounting specialist followed. Home medication were resumed. Blood pressure was closely monitored. Patient initially received IV fluids. Blood rpessure stabilized. Echocardiogram revealed preserved ejection fraction of 60% with mild left ventricular hypertrophy. No evidence of pericardial effusion. Repeated troponin was negative. Patient started on empiric antibiotic for dental infection. GI prophylaxis provided. After blood pressure stabilized , it was managed with calcium channel brock. Telemetry revealed chronci atrial fibrillation with controlled ventricular ventricular response. No anticoagulation, given history of GI bleeding. Aldactone continued for apparently chronic hypokalemia. Renal parameters and electrolytes were closely monitored. Potassium remained stable. Creatinine from 1.4 down to 1.0. Orthostatic vital signs revealed no evidence of orthostatic changes. Syncope was probably due to hypotension. Supplemental oxygen titrated as needed to keep pulse oximetry above 92%. Pulse oximetry was stable on room air. CPAP provided at night. Hemoglobin and hematocrit were closely monitored with goal to keep hemoglobin above 7. Stool for occult blood was positive. Prior to discharge hemoglobin 11.5 , hematocrit 25.1. Platelet count was closely monitored, prior to discharge 61. LFT were closely monitored, trending down; prior to discharge AST 41 from initial 75. GI prophylaxis provided. Patient was complaining of the bilateral knee pain. Pain management was addressed, and pain was controlled. Patient was working with physical therapist. Orthopedic surgeon seen and evaluated patient. Per orthopedic surgeon patient had early arthritis in bilateral knees with medial femoral condyle flattening to his left knee. Patient was able to get around by using a walker. Patient was concerned about using toilet at home. Bedside commode 3:1 was arranged. Patient to follow-up with orthopedic surgeon as outpatient FINAL DIAGNOSES: Hypotensive syncope Hypertension Obstructive sleep apnea Permanent atrial fibrillation Head injury Morbid obesity with BMI 40.9 Left second toe PIP joint dislocation , status post reduction in ED History of GI bleeding Dental infection Thrombocytopenia Elevated LFT probably due to history of Nicholas Renal insufficiency -resolved Bilateral knee pain, chronic Bilateral knee early arthritis with medial femoral condyle flattening to his left knee History of previous meniscus tear/MCL sprain Right knee possible internal derangement of meniscal tear DISCHARGE MEDICATIONS: See Medication Reconciliation list. DISCHARGE INSTRUCTIONS: Patient was discharged home . Follow up with primary care provider in one week. Nuria Perry NP May 03, 2019 09:06
== END 2019-05-02 14:26 | disposition home or self-care (01) | DRG 312 ==
LOC: EDBD 21:07 → EMR 22:00 → 2E 22:15 → EDBEDREQ 22:39 → 4E 04-30 10:48 → 3E 04-30 11:03
PROC: 0SSQXZZ Reposition Left Toe Phalangeal Joint, External Approach (ICD-10-PCS; principal; 2019-04-27)
DX: R55 Syncope and collapse (principal); I48.20 Chronic atrial fibrillation, unspecified; Z68.41 Body mass index [BMI] 40.0-44.9, adult; G93.40 Encephalopathy, unspecified; I95.9 Hypotension, unspecified; E86.0 Dehydration; R19.7 Diarrhea, unspecified; E66.01 Morbid (severe) obesity due to excess calories; G47.33 Obstructive sleep apnea (adult) (pediatric); D69.6 Thrombocytopenia, unspecified; I12.9 Hypertensive chronic kidney disease with stage 1 through stage 4 chronic kidney disease, or unspecified chronic kidney disease; N18.2 Chronic kidney disease, stage 2 (mild); K75.81 Nonalcoholic steatohepatitis (NASH); K02.9 Dental caries, unspecified; K04.7 Periapical abscess without sinus; S09.90XA Unspecified injury of head, initial encounter; W19.XXXA Unspecified fall, initial encounter; S93.115A Dislocation of interphalangeal joint of left lesser toe(s), initial encounter; M17.0 Bilateral primary osteoarthritis of knee; M23.206 Derangement of unspecified meniscus due to old tear or injury, right knee; R79.89 Other specified abnormal findings of blood chemistry
CPT/HCPCS: 36415; 70450; 71045; 80048; 80053; 82270; 83735; 83880; 84100; 84484; 85007; 85025; 85610; 85730; 93005; 93306; 94660; 96361; 96374; 96375; 99285; J2405; J7030